=== PATIENT | male | born 1980 | race African-American/Black ===

== ENCOUNTER 2019-03-12 15:28 | Emergency (ER) | payer SELFPAY ==
[~2019-03-12] VITALS: Ht 188 cm; Wt 79.8 kg
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
[2019-03-12] MEDS ORDERED: IBUPROFEN 600 MG TABLET PO ONE ×2 (16:28→16:30)
--- NOTE | 2019-03-12 18:35 | NUR ---
Patient discharged to home in stable condition. Written and verbal after care instructions given. Patient verbalizes understanding of instruction.
[2019-03-12 18:36] VITALS: BP 118/71
== END 2019-03-12 18:39 | disposition home or self-care (01) ==
LOC: ER 15:32
DX: S80.01XA Contusion of right knee, initial encounter (principal); F10.10 Alcohol abuse, uncomplicated; F17.200 Nicotine dependence, unspecified, uncomplicated; Y90.9 Presence of alcohol in blood, level not specified; V09.09XA Pedestrian injured in nontraffic accident involving other motor vehicles, initial encounter; Y93.89 Activity, other specified; Y92.89 Other specified places as the place of occurrence of the external cause; Y99.8 Other external cause status
CPT/HCPCS: 73564-TC